=== PATIENT | male | born 1960 | race Caucasian/White ===

== ENCOUNTER 2017-06-05 11:40 | Emergency (ER) | payer SELFPAY ==
[2017-06-05 11:50] VITALS: BP 172/81
--- NOTE | 2017-06-05 12:01 | UC ---
General HPI - HPI Summary HPI Summary: 56 yo gentleman presents with c/o L facial pain and swelling, since last night. No fever / chills. No n/v. No vis / aud changes, but swelling extends up to lower eyelid. Hx poor dentition. Not aware of recent dental trauma or new pain , although since this am, his L upper teeth are hurting. No sob / cp / palpitations. No h/a. No ear pain. No rash other than as above. - History of Current Complaint Chief Complaint: ELSAkin Stated Complaint: LEFT SIDE FACE SWELLING Time Seen by Provider: 06/05/17 12:00 Hx Obtained From: Patient - Allergy/Home Medications Allergies/Adverse Reactions: Allergies Allergy/AdvReac Type Severity Reaction Status Date / Time No Known Allergies Allergy Verified 06/05/17 11:50 Home Medications: Home Medications Aspirin TAB* [Aspirin 325 MG TAB*] 650 mg PO ONCE PRN 06/05/17 [History Confirmed 06/05/17] PMH/Surg Hx/FS Hx/Imm Hx Previously Healthy: Yes - Surgical History Surgical History: Yes Surgery Procedure, Year, and Place: right inguinal, right leg cellulitis 2012 - Social History Alcohol Use: Occasionally Substance Use Type: None Smoking Status (MU): Former Smoker When Did the Patient Quit Smoking/Using Tobacco: 30yrs Review of Systems Constitutional: Negative Skin: Rash - see hpi Eyes: Other - see hpi ENT: Other - see hpi Respiratory: Negative Cardiovascular: Negative Gastrointestinal: Negative Genitourinary: Negative Motor: Negative Neurovascular: Negative Musculoskeletal: Negative Neurological: Negative Psychological: Negative Is Patient Immunocompromised?: No All Other Systems Reviewed And Are Negative: Yes Physical Exam Triage Information Reviewed: Yes Appearance: Well-Nourished - sitting up. conversing easily and appropriately. Vital Signs: Initial Vital Signs Temp 98.6 F 06/05/17 11:45 Pulse 86 06/05/17 11:45 Resp 18 06/05/17 11:45 BP 172/81 06/05/17 11:45 Eye Exam: Other - PERRLA EOMI. Sclerae white. Conj pink. ENT Exam: Other - post pharynx unremarkable. No sores. Tongue not elevated. Uvula midline. Poor dentition, several missing and broken teeth. Focal dental tenderness or fluctuance not appreciated, but he does c/o pain with pressure to mid-upper left gum. L maxillary facial area + red, + swelling. Not tense swelling. INcreased warm to touch. Lower eyelid mild edema. No proptosis. Nares without abnomormality or sores noted to direct light exam via otoscope. ENT: Positive: TM dull - dull tm au Neck exam: Normal Neck: Positive: Supple, Nontender, No Lymphadenopathy Respiratory Exam: Normal Respiratory: Positive: Chest non-tender, Lungs clear, Normal breath sounds, No respiratory distress, No accessory muscle use Cardiovascular Exam: Normal Cardiovascular: Positive: RRR, No Murmur, Pulses Normal, Brisk Capillary Refill Abdominal Exam: Normal Abdomen Description: Positive: Nontender Musculoskeletal Exam: Normal Neurological Exam: Normal - generally nonfocal. other than swelling as noted above CN1-12 intact. There is slight dysesthesia to Light touch to left lat nose and left maxilla. Psychological Exam: Normal - conversing easily and appropriately Skin Exam: Normal - normal except as noted above. nondiaphoretic. nontoxic appearance. Course/Dx - Course Course Of Treatment: 172/81 BP, d/w pt including recommendation f/u with pcp. D /w s/sx with pt. L facial cellulitis. Unclear origen, likely dental. However , focal area of involvement is not clear to examination. I encouraged transfer to the Emerg Dept. Mr. Falcon carefully considered, respectfully but firmly declines. He plans to see his dentist - will try to see today for dental xrays. Given IM rocephin here. Rx Augmentin. He will go to the ED for any worse or new problems. Questions as posed answered to the best of my ability. - Differential Dx - Multi-Symptom Provider Diagnoses: L facial cellulitis Discharge - Discharge Plan Condition: Stable Disposition: HOME Prescriptions: Amoxicillin/Clavulanate TAB* [Augmentin TAB 875*] 875 mg PO BID #28 tab Ibuprofen TAB* [Motrin TAB* 600 MG] 600 mg PO Q8H PRN #30 tab PRN Reason: Pain Patient Education Materials: Cellulitis (ED) Referrals: [facility] [place] [facility] [Outside] Additional Instructions: Please follow up with your dentist as soon as possible. Please go to the Emergency Department for worse or new problems. Do not take ibuprofen while taking aspirin.
[2017-06-05] MEDS ORDERED: cefTRIAXone VIAL(*) 1,000 MG VIAL IM ONE ×2 (12:34→12:42)
[2017-06-05] MEDS ORDERED: Lidocaine 2% PF * 5 ML VIAL INJ ONE (12:40)
== END 2017-06-05 13:10 | disposition home or self-care (01) ==
LOC: UCCORT 11:40
DX: L03.211 Cellulitis of face (principal); Z87.891 Personal history of nicotine dependence
CPT/HCPCS: 96372; 99212; G0463; J0696